=== PATIENT | female | born 1965 ===

== ENCOUNTER 2021-08-04 08:14 | Emergency (ER) | payer BC ==
[2021-08-04] MEDS ORDERED: Fluorescein 1 MG Ophth Strip EYERT ONE (08:43)
[2021-08-04] MEDS ORDERED: Tetracaine HCl/PF 0.5% 4 ML Bottle EYERT ONE (08:43)
== END 2021-08-04 09:13 | disposition home or self-care (01) ==
LOC: DL.ED 08:14
DX: S05.01XA Injury of conjunctiva and corneal abrasion without foreign body, right eye, initial encounter (principal); R51.9 Headache, unspecified; Z88.2 Allergy status to sulfonamides; W22.8XXA Striking against or struck by other objects, initial encounter
CPT/HCPCS: 99283

== ENCOUNTER 2021-08-10 16:50 | Emergency (ER) | payer BC ==
[2021-08-10] MEDS ORDERED: Lidocaine 2% with EPINEPHrine 1:200,000 20 ML SDV INJECT ONE (17:01)
[2021-08-10] MEDS ORDERED: Bacitracin Oint 1 GM U/D Packet TOP ONE (17:01)
== END 2021-08-10 18:28 | disposition home or self-care (01) ==
LOC: DL.ED 16:50
DX: S61.011A Laceration without foreign body of right thumb without damage to nail, initial encounter (principal); Z88.2 Allergy status to sulfonamides; W26.8XXA Contact with other sharp object(s), not elsewhere classified, initial encounter
CPT/HCPCS: 12001; 99282-25; 99283